=== PATIENT | male | born 1945 | race Caucasian/White ===

== ENCOUNTER 2018-08-22 00:20 | Outpatient (CLI) | payer MEDICARE ==
[2018-08-22 14:37] LABS: #Basophils 0.1 thou/uL (0.0-0.2); #Eosinphils 0.3 thou/uL (0.0-0.7); #Lymphocytes 2.3 thou/uL (1.20-3.40); #Monocytes 0.8 thou/uL (0.11-0.59); #Neutrophils 5.2 thou/uL (1.40-6.50); %Basophils 0.7 % (0.0-1.0); %Eosinophils 3.4 % (0.0-10.0); %Lymphocytes 26.6 % (21.0-51.0); %Monocytes 9.6 % (0.0-10.0); %Neutrophils 59.8 % (42.0-75.0); Hemoglobin 13.7 g/dL (14.0-18.0); Mean Corpuscular HGB CONC 32.2 g/dL (32.0-36.0); Mean Corpuscular Hemoglobin 29.7 pg (27.0-31.0); Mean Corpuscular Volume 92.3 fL (78.0-98.0); Mean Platelet Volume 8.4 fL (7.4-10.4); Platelet Count 262 thou/uL (130-400); RBC Distribution Width 11.8 % (11.5-14.5); Red Blood Cell (RBC) Count 4.61 mill/uL (4.70-6.10); White Blood Cell (WBC) Count 8.6 thou/uL (4.8-10.8)
[2018-08-22 14:39] LABS: Bilirubin Negative (Negative); Blood, Urine Small (Negative); Clarity CLEAR (Clear); Glucose, Urine (Dipstick) Negative (Negative); Leukocyte Negative (Negative); Nitrite Negative (Negative); Protein, Urine (Dipstick) Negative (Neg-Trace); Specific Gravity, Urine 1.014 (1.002-1.036); pH, Urine 7.5 (5.0-9.0)
[2018-08-22 14:41] LABS: Bacteria/HPF None Seen HPF (None Seen); Hyaline Casts/LPF 0-3 HYALINE CAST LPF (0-3 Hyaline); Squamous Epithelial None Seen HPF (0-3); WBC/HPF None Seen HPF (0-3)
[2018-08-22 14:47] LABS: Anion Gap 10 mmol/L (10-20); BUN (Urea Nitrogen) 17 mg/dL (8.4-25.7); Calc. Creatinine Clearance 0 mL/min (70-130); Carbon Dioxide 29 mmol/L (23-31); Chloride 106 mmol/L (98-107); Estimated GFR-MDRD 88; Glucose 100 mg/dL (83-110); Potassium 3.4 mmol/L (3.5-5.1); Sodium 142 mmol/L (136-145)
--- NOTE | 2018-08-23 16:45 | EKG ---
Test Reason : Blood Pressure : / mmHG Vent. Rate : 063 BPM Atrial Rate : 063 BPM P-R Int : 180 ms QRS Dur : 136 ms QT Int : 504 ms P-R-T Axes : 068 034 059 degrees QTc Int : 515 ms Normal sinus rhythm Right bundle branch block Abnormal ECG No previous ECGs available Confirmed by DR. Jasvir JACK ([id number]) on 08/23/2018 4:45:13 PM Referred By: IERO Confirmed By:DR. Jasvir JACK
== END 2018-08-22 00:21 | disposition home or self-care (01) ==
LOC: LABBT 00:20
PROVIDERS: ATTEND Orthopaedic Surgery
DX: Z01.818 Encounter for other preprocedural examination (principal); M17.12 Unilateral primary osteoarthritis, left knee
CPT/HCPCS: 80048; 81001; 85025; 87081; 93005; 93010

== ENCOUNTER 2018-09-02 05:30 | Inpatient (IN) | payer MEDICARE ==
[2018-08-22 13:05] VITALS: BMI 31.1
[2018-09-02] MEDS ORDERED: Sodium Chloride 0.9% 100 ML ONE (06:21)
[2018-09-02] MEDS ORDERED: Tranexamic Acid 1,000 MG/10 ML VIAL ONE ×2 (06:21→08:58)
[2018-09-02] MEDS ORDERED: Vancomycin HCl 1.5 GM in Sodium Chloride 0.9% 250 ML 300 ML IVPB SCH ×2 (06:30→20:00)
[2018-09-02 06:32] LABS: PTT 29.8 SEC (22.9-36.1); Prothrombin Time 13.4 SEC (12.0-14.7)
[2018-09-02] MEDS ORDERED: Midazolam HCl 2 mg/2 ml Vial ONE (06:33)
[2018-09-02] MEDS ORDERED: Lidocaine 1% (PF) 30 ML VIAL ONE (06:33)
[2018-09-02] MEDS ORDERED: Fentanyl 100 MCG/2 ML VIAL ONE ×2 (06:33→07:30)
[2018-09-02] MEDS ORDERED: traMADol HCl 50 MG TAB PO PRN ×3 (07:08→07:11)
[2018-09-02] MEDS ORDERED: Ropivacaine HCl/PF 250 ML in Premix Bag 1 BAG NERVE BLCK SCH (07:08)
[2018-09-02] MEDS ORDERED: HYDROcodone/Acetaminophen 10/325 mg Tablet PO PRN ×3 (07:08→07:11)
[2018-09-02] MEDS ORDERED: Ondansetron PF 4 MG/2 ML Vial IVP PRN ×2 (07:08→07:11)
[2018-09-02] MEDS ORDERED: Promethazine HCl 25 MG/ML VIAL IM PRN ×3 (07:08→09:07)
[2018-09-02] MEDS ORDERED: Zolpidem Tartrate 5 MG TAB PO PRN ×2 (07:08→07:11)
[2018-09-02] MEDS ORDERED: Fentanyl 100 MCG/2 ML VIAL SLOW IVP PRN ×2 (07:09→07:11)
[2018-09-02] MEDS ORDERED: Acetaminophen 325 MG TAB PO PRN (07:11)
[2018-09-02] MEDS ORDERED: diphenhydrAMINE 25 MG CAP PO PRN (07:11)
[2018-09-02] MEDS ORDERED: Tranexamic Acid 1,000 MG in Sodium Chloride 0.9% 100 ML IVPB SCH (07:15)
[2018-09-02] MEDS ORDERED: Bupivacaine PF 0.5% 30 ML VIAL ONE (07:42)
[2018-09-02] MEDS ORDERED: Ondansetron HCl/PF 4 MG/2 ML Vial IVP PRN (09:07)
[2018-09-02] MEDS ORDERED: Promethazine HCl 25 MG/ML VIAL SLOW IVP PRN (09:07)
[2018-09-02] MEDS: Sodium Chloride 0.9% 1,000 ML IV SCH ×3 (10:29→20:23)
--- NOTE | 2018-09-02 11:53 | OP ---
DATE OF PROCEDURE: 09/02/2018 PREOPERATIVE DIAGNOSIS: Left knee osteoarthrosis. POSTOPERATIVE DIAGNOSIS: Left knee osteoarthrosis. PROCEDURE PERFORMED: Left total knee replacement using Texline pinless navigation. MAT PACKER: Errol Gonzales PA-C ESTIMATED BLOOD LOSS: Minimal. COMPLICATIONS: None. ANESTHESIA: He had general anesthetic. He also had a preoperative block. IMPLANTS: Implants to the left leg was Evette triathlon total knee system. The femur was a size 6 cruciate retraining. The tibial base plate was size 6 primary tibial base plate. We used a 6 x 9 mm CS X3 tibial poly and an asymmetric 32 x 10 X3 patella. DISPOSITION: He did go to recovery in stable condition. INDICATIONS: This is a 73-year-old male, who has failed all nonoperative treatment for left knee arthritis. This is causing significant problems with daily activity, pain and a feeling of instability. At this time, he wished to have his knee replaced. PROCEDURE IN DETAIL: After all appropriate consent forms were explained and signed, the patient was taken back to the operating room and at this time was given general anesthetic. Once the level of anesthesia was appropriate, a well-padded tourniquet was placed on the left leg, and the leg was then prepped and draped in standard surgical fashion. The limb was exsanguinated and tourniquet taken up to 300 mmHg. Midline incision was made with a 10 blade down through the skin and subcutaneous tissue. Bovie electrocautery was used to coagulate any brisk venous bleeding. A new blade was used to make a medial parapatellar arthrotomy. Small subperiosteal release was performed medially and excess fat pad was removed. The knee was flexed up to gain access to the femur. The femur was navigated and distal femoral resection was made. Epicondylar access was used to align our sizing jig and this was pinned in place. We sized our femur to be a size 6 cruciate retraining. 4:1 cutting block was applied and pinned. Anterior and posterior chamfer cuts were then made. We navigated out our proximal tibia and made our proximal tibial resection. Spreaders were used to remove any posterior osteophytes off the back of the femur as well as remaining meniscal tissue. A long alignment miguel a was then used to achieve correct rotation of our tibial baseplate and a size size 6 primary tibial base plate was chosen. This was pinned in place. We trialed the polyethylene and a 6 x 9 mm CS X3 tibial polyethylene gave us full extension and good stability throughout range of motion. Two towel clips and a saw were used to cut our patella. Three lug nuts were drilled and asymmetric 32 x 10 X3 patella was trialed which sat nicely in the trochlear groove. We then drilled our femur and punched our tibia. All components were removed. The knee was thoroughly irrigated and dried. Cement was mixed into the cement gun on the back table. Components were then placed. The knee was held out in full extension until the cement had dried. All excess bone cement was removed. Multiple #2 Vicryl stitches as well as a Quill were used to close our extensor mechanism. 0 Quill followed by a running Monoderm was then used to close the skin. Surgicel glue was then used on the skin. Once this had dried, soft tissue dressing was applied to the limb, tourniquet was let down, and the toes pinked up nicely. The patient was then awakened and taken to the recovery room in stable condition. All counts were correct at the end of the case. The patient did receive preoperative IV antibiotics. The patient was injected with Exparel for postoperative pain relief. Job ID: [id number]
[2018-09-02] MEDS: Finasteride 5 MG TAB PO SCH (12:09)
[2018-09-02] MEDS: Tamsulosin HCl 0.4 MG CAP PO SCH (12:09)
[2018-09-02] MEDS: Aspirin 81 mg Enteric Coated Tablet PO SCH ×2 (12:10→20:24)
[2018-09-02] MEDS: Lisinopril 20 MG TAB PO SCH (12:10)
[2018-09-02] MEDS: Ketorolac Tromethamine 30 MG/ML VIAL IVP SCH ×3 (12:11→23:31)
[2018-09-02] MEDS ORDERED: Ropivacaine 0.5% HCl/PF (150 MG/30 ML VIAL) ONE (15:05)
[2018-09-02] MEDS ORDERED: Ropivacaine 0.2% HCl/PF (40 MG/20 ML VIAL) ONE (15:05)
[2018-09-02] MEDS ORDERED: Dexamethasone 20 MG/5 ML VIAL ONE (15:07)
[2018-09-02] MEDS ORDERED: PROPOFOL 200 MG/20 ML VIAL ONE (15:07)
[2018-09-02] MEDS ORDERED: Lidocaine 1% PF 5 ML VIAL ONE (15:07)
[2018-09-02] MEDS ORDERED: Ondansetron PF 4 MG/2 ML Vial ONE (15:07)
[2018-09-02] MEDS ORDERED: ePHEDrine 50 MG/ML VIAL ONE (15:07)
[2018-09-02] MEDS ORDERED: Glycopyrrolate 0.2 MG/ML 5 ML SYRINGE ONE (15:07)
[2018-09-02] MEDS ORDERED: Ketorolac Tromethamine 30 MG/ML VIAL ONE (15:07)
[2018-09-02] MEDS: Aliskiren Hemifumarate 300 mg Tablet PO SCH (15:38)
[2018-09-02] MEDS: Flecainide 50 MG TAB PO SCH ×2 (15:39→20:25)
[2018-09-02] MEDS: CEFAZOLIN 2 GM in Premix Bag 1 BAG IVPB SCH ×2 (15:40→23:32)
[2018-09-03] MEDS: Ketorolac Tromethamine 30 MG/ML VIAL IVP SCH ×4 (05:45→23:51)
[2018-09-03 06:10] LABS: Hemoglobin 10.8 g/dL (14.0-18.0); Mean Corpuscular Hemoglobin 30.4 pg (27.0-31.0); Mean Corpuscular Volume 92.4 fL (78.0-98.0); Mean Platelet Volume 8.9 fL (7.4-10.4); Platelet Count 196 thou/uL (130-400); RBC Distribution Width 11.7 % (11.5-14.5); Red Blood Cell (RBC) Count 3.55 mill/uL (4.70-6.10); White Blood Cell (WBC) Count 10.5 thou/uL (4.8-10.8)
[2018-09-03] MEDS: Ferrous Gluconate 324 MG TAB PO SCH ×2 (08:19→17:28)
[2018-09-03] MEDS: Aliskiren Hemifumarate 300 mg Tablet PO SCH (08:19)
[2018-09-03] MEDS: Flecainide 50 MG TAB PO SCH ×2 (08:20→20:47)
[2018-09-03] MEDS: Senokot S 8.6-50 MG TAB PO SCH ×2 (08:23→20:47)
[2018-09-03] MEDS: Aspirin 81 mg Enteric Coated Tablet PO SCH ×2 (08:23→20:47)
[2018-09-03] MEDS: Finasteride 5 MG TAB PO SCH (08:24)
[2018-09-03] MEDS: Lisinopril 20 MG TAB PO SCH (08:24)
[2018-09-03] MEDS: Tamsulosin HCl 0.4 MG CAP PO SCH (08:24)
[2018-09-03] MEDS: Multivitamin W/ Minerals 1 TAB PO SCH (08:24)
[2018-09-03] MEDS: Sodium Chloride 0.9% 1,000 ML IV SCH ×2 (13:33→23:50)
[2018-09-03] MEDS ORDERED: hydrALAZINE 20 MG/ML VIAL SLOW IVP PRN (14:47)
--- NOTE | 2018-09-03 15:06 | CON ---
DATE OF CONSULTATION: PRIMARY CARE PROVIDER: Dr. Brenden Mitchell, in [place], [place]. CHIEF COMPLAINT: Hypertension. HISTORY OF PRESENT ILLNESS: Mr. Noyola is a pleasant 73-year-old gentleman, who was seen at [facility] for management of medical comorbidities on September 03, 2018. Yesterday, he underwent left total knee replacement. Hospitalist Service was consulted for medical management. He denies any chest pain or shortness of breath. He denies any nausea or vomiting. He denies any abdominal pain. He denies any diarrhea. REVIEW OF SYSTEMS: All other systems reviewed and found to be negative. PAST MEDICAL HISTORY: Atrial fibrillation, benign prostate hypertrophy, and hypertension. PAST SURGICAL HISTORY: Hernia surgery. SOCIAL HISTORY: One or two beers a day. No tobacco use or recreational drug use. FAMILY HISTORY: Father from myocardial infarction. Mother had stroke. ALLERGIES: NO KNOWN DRUG ALLERGIES. CURRENT MEDICATIONS: 1. Aliskiren 150 mg daily. 2. Apixaban 5 mg two times a day. 3. Finasteride 5 mg daily. 4. Flecainide 50 mg 2 times a day. 5. Lisinopril 40 mg daily. 6. Toprol-XL 50 mg daily. 7. Tamsulosin 0.4 mg daily. PHYSICAL EXAMINATION: GENERAL: On examination, Mr. Noyola is awake and alert, not in acute distress. VITAL SIGNS: Blood pressure is 134/71, pulse 88, respiratory rate 18, and oxygen saturation 92% on room air. He is afebrile. He is obese, with a BMI of 31.2. EYES: No scleral icterus, no conjunctival pallor. ENT: Moist mucosal membranes. No oropharyngeal erythema or exudates. NECK: Supple, nontender, trachea is midline. RESPIRATORY: Accessory muscles of breathing are not active. Chest wall movements are symmetric bilaterally. LUNGS: Clear to auscultation without wheeze, rhonchi, or crepitations. CARDIOVASCULAR: S1 and S2 are heard, regular. Peripheral pulses palpable. No carotid bruit. No pericardial rub. ABDOMEN: Soft, nontender, bowel sounds heard. NEUROLOGIC: Cranial nerves II through XII are intact. MUSCULOSKELETAL: Status post left knee surgery. SKIN: No rashes or subcutaneous nodules. LYMPHATIC: No cervical lymphadenopathy. PSYCHIATRIC: Normal mood, normal affect, the patient is oriented to person, place, and time. LABORATORY DATA: Mr. Noyola's labs and investigations were reviewed. He has normal white count, normocytic anemia with hemoglobin of 10.8, and normal platelet count. INR is 1.0. ASSESSMENT AND PLAN: Mr. Noyola is a pleasant 73-year-old gentleman, who was seen at [facility] on September 03, 2018. His problem list includes: 1. Hypertension: Blood pressure is currently controlled, continue metoprolol and lisinopril. Add p.r.n. hydralazine for blood pressure spikes. 2. Atrial fibrillation: Continue beta cody. Resumption of anticoagulation per Orthopedic Surgery Service. 3. Benign prostate hypertrophy: Stable, continue tamsulosin and finasteride. Many thanks for allowing me to participate in your patient's care. Please feel free to contact me with any questions or concerns. LEVEL OF RISK: Moderate. LEVEL OF COMPLEXITY: Moderate. Job ID: [id number]
[2018-09-03] MEDS: HYDROcodone/Acetaminophen 10/325 mg Tablet PO PRN (20:50)
[2018-09-03] MEDS: cloNIDine 0.1 MG TAB PO PRN (22:21)
[2018-09-04] MEDS: HYDROcodone/Acetaminophen 10/325 mg Tablet PO PRN ×3 (04:15→13:12)
[2018-09-04] MEDS: cloNIDine 0.1 MG TAB PO PRN (04:15)
[2018-09-04 04:55] LABS: Hemoglobin 10.2 g/dL (14.0-18.0); Mean Corpuscular HGB CONC 32.7 g/dL (32.0-36.0); Mean Corpuscular Hemoglobin 30.6 pg (27.0-31.0); Mean Corpuscular Volume 93.3 fL (78.0-98.0); Mean Platelet Volume 9.1 fL (7.4-10.4); Platelet Count 178 thou/uL (130-400); RBC Distribution Width 11.7 % (11.5-14.5); Red Blood Cell (RBC) Count 3.34 mill/uL (4.70-6.10); White Blood Cell (WBC) Count 10.6 thou/uL (4.8-10.8)
[2018-09-04] MEDS: Ketorolac Tromethamine 30 MG/ML VIAL IVP SCH (05:08)
[2018-09-04] MEDS ORDERED: Labetalol HCl 100 MG/20 ML VIAL SLOW IVP PRN (08:58)
[2018-09-04] MEDS ORDERED: CeleCOXIB 100 MG CAP PO SCH (09:00)
[2018-09-04] MEDS: Senokot S 8.6-50 MG TAB PO SCH (09:18)
[2018-09-04] MEDS: Tamsulosin HCl 0.4 MG CAP PO SCH (09:18)
[2018-09-04] MEDS: Multivitamin W/ Minerals 1 TAB PO SCH (09:18)
[2018-09-04] MEDS: Aspirin 81 mg Enteric Coated Tablet PO SCH (09:18)
[2018-09-04] MEDS: Ferrous Gluconate 324 MG TAB PO SCH (09:19)
[2018-09-04] MEDS: Lisinopril 20 MG TAB PO SCH (09:19)
[2018-09-04] MEDS: Finasteride 5 MG TAB PO SCH (09:19)
[2018-09-04] MEDS: Sodium Chloride 0.9% 1,000 ML IV SCH (09:31)
[2018-09-04] MEDS: Aliskiren Hemifumarate 300 mg Tablet PO SCH (10:14)
[2018-09-04] MEDS: Flecainide 50 MG TAB PO SCH (10:14)
[2018-09-04 14:02] VITALS: BP 135/68; TEMP 98.4
--- NOTE | 2018-09-04 23:34 | PDOC.PN ---
- Subjective Encounter Start Date: 09/04/18 Encounter Start Time: 09:30 Patient seen and examined for med mngt. No new complaints. No overnight events - Objective MAR Reviewed: Yes Vital Signs & Weight: Vital Signs (12 hours) Temp Pulse Resp BP Pulse Ox 09/04/18 14:02 98.4 F 80 18 135/68 94 L 09/04/18 11:42 98.3 F 82 18 125/69 94 L Weight Admit Weight 230 lb Weight 230 lb 0.071 oz I&O: 09/03/18 09/04/18 09/05/18 06:59 06:59 06:59 Intake Total 3446.0 1101.0 Output Total 400 Balance 3446.0 701.0 Result Diagrams: 09/04/18 04:13 Phys Exam - Physical Examination Constitutional: NAD Respiratory: no wheezing, no rhonchi Cardiovascular: RRR, no rub Gastrointestinal: soft, non-tender, positive bowel sounds Musculoskeletal: no edema Dx/Plan - Plan DVT proph w/SCDs 1. HTN 2. Par Afib 3. YESSENIA on CPAP 4. Obesity BMI 31.2 PLAN: Resume Eliquis per Ortho Cont current meds as below Review of Systems - Review of Systems Respiratory: negative: Cough, Dry, Shortness of Breath, Hemoptysis, SOB with Excertion, Pleuritic Pain, Sputum, Wheezing Cardiovascular: negative: chest pain, palpitations, orthopnea, paroxysmal nocturnal dyspnea, edema, light headedness, other - Medications/Allergies Allergies/Adverse Reactions: Allergies Allergy/AdvReac Type Severity Reaction Status Date / Time No Known Allergies Allergy Unverified 08/22/18 13:05
== END 2018-09-04 13:55 | disposition home or self-care (01) | DRG 470 ==
LOC: EDBD → SDC 05:30 → SJJU 10:17
PROVIDERS: ADMIT Orthopaedic Surgery; ATTEND Orthopaedic Surgery
PROC: 0SRD0J9 Replacement of Left Knee Joint with Synthetic Substitute, Cemented, Open Approach (ICD-10-PCS; principal; 2018-09-02)
DX: M17.12 Unilateral primary osteoarthritis, left knee (principal); I10 Essential (primary) hypertension; I48.91 Unspecified atrial fibrillation; N40.0 Benign prostatic hyperplasia without lower urinary tract symptoms; E66.9 Obesity, unspecified; Z68.31 Body mass index [BMI] 31.0-31.9, adult; Z79.899 Other long term (current) drug therapy; Z79.01 Long term (current) use of anticoagulants
CPT/HCPCS: 36415; 85027; 85610; 85730; 86850; 86900; 86901; C1713; C1776; J0360; J1100; J1885; J2001; J2250; J2405; J2704; J2795; J3010; J3370; J3490; J7050; S0020

== ENCOUNTER 2018-09-05 14:26 | Emergency (ER) | payer MEDICARE ==
[2018-09-05] MEDS ORDERED: ISOVUE-370 76%-LOCM 1 ML ONE (14:58)
[2018-09-05 15:14] LABS: #Eosinphils 0.3 thou/uL (0.0-0.7); #Lymphocytes 0.9 thou/uL (1.20-3.40); #Monocytes 1.1 thou/uL (0.11-0.59); #Neutrophils 6.5 thou/uL (1.40-6.50); %Basophils 0.3 % (0.0-1.0); %Eosinophils 2.9 % (0.0-10.0); %Monocytes 12.7 % (0.0-10.0); Hemoglobin 9.3 g/dL (14.0-18.0); Mean Corpuscular HGB CONC 32.4 g/dL (32.0-36.0); Mean Corpuscular Hemoglobin 30.2 pg (27.0-31.0); Mean Corpuscular Volume 93.2 fL (78.0-98.0); Mean Platelet Volume 9.1 fL (7.4-10.4); Platelet Count 189 thou/uL (130-400); RBC Distribution Width 11.9 % (11.5-14.5); Red Blood Cell (RBC) Count 3.09 mill/uL (4.70-6.10); White Blood Cell (WBC) Count 8.7 thou/uL (4.8-10.8)
--- NOTE | 2018-09-05 15:25 | CT ---
FEXAM:CT anterior chest performed with intravenous contrast enhancement with 3-D reconstructions HISTORY: Shortness of breath. Knee replacement on Sunday for which he was discharged on Sunday. COMPARISON: None. FINDINGS:The lungs show some evidence for air trapping. Tiny bilateral pleural effusions are noted. A well-circumscribed left lower lobe pulmonary nodule is identified and measures 7 to 8 mm. There are atelectatic changes in both lung bases. There is some mildly numerous mediastinal nodes with multiple right paratracheal and prevascular node s. Most of these are subcentimeter in size slightly enlarged prevascular nodes measuring in the 10 mm range. These may all be reactive. There are also small bilateral hilar lymph nodes present The thora cic aorta is normal in caliber. There is good pulmonary artery opacification obtained there is no CT evidence for pulmonary embolus. Visualized liver parenchyma shows no focal findings. Partially visualized hypodensity involving the r ight kidney appears to represent a cyst. IMPRESSION: 1. Moderate bibasilar atelectasis with tiny bilateral effusions. 2. 7 to 8 mm noncalcified left lower lobe pulmonary nodule. A follow-up in approximately one year wou ld be recommended for assessment. 3. Mildly prominent mediastinal adenopathy possibly reactive. 4. Evidence of some air trapping. 5. No CT evidence for pulmonary embolus.
[2018-09-05 15:29] LABS: ALT (SGPT) 33 U/L (8-55); AST (SGOT) 26 U/L (5-34); Albumin 3.4 g/dL (3.4-4.8); Alkaline Phosphatase 58 U/L (40-150); Anion Gap 11 mmol/L (10-20); BUN (Urea Nitrogen) 22 mg/dL (8.4-25.7); Bilirubin, Total 0.6 mg/dL (0.2-1.2); CK (CPK) 130 U/L (30-200); Calc. Creatinine Clearance 0 mL/min (70-130); Calcium 8.2 mg/dL (7.8-10.44); Carbon Dioxide 29 mmol/L (23-31); Chloride 104 mmol/L (98-107); Estimated GFR-MDRD Greater than 90; Globulin 2.1 g/dL (2.4-3.5); Glucose 107 mg/dL (83-110); Potassium 3.8 mmol/L (3.5-5.1); Protein, Total 5.5 g/dL (5.8-8.1); Sodium 140 mmol/L (136-145)
== END 2018-09-05 16:56 | disposition home or self-care (01) ==
LOC: ERS 14:26
DX: R06.02 Shortness of breath (principal); I48.91 Unspecified atrial fibrillation; I11.0 Hypertensive heart disease with heart failure; I50.9 Heart failure, unspecified
CPT/HCPCS: 36415; 71275; 80053; 82550; 84484; 85025; 93005; 94760; Q9966

== ENCOUNTER 2018-11-13 12:02 | Outpatient (CLI) | payer MEDICARE ==
--- NOTE | 2018-11-13 12:34 | RAD ---
EXAM: CHEST TWO VIEWS: 11/13/18 HISTORY: Dyspnea. Heart size is upper range of normal. Bronchovascular markings are slightly increased bilaterally. Mor e so in the bases with some linear change. No confluent pneumonia, overt edema, or pleural effusion. IMPRESSION: Borderline sized heart. Bilateral linear and interstitial increased markings having more of a chroni c appearance. 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 POS: [facility]
== END 2018-11-13 12:03 | disposition home or self-care (01) ==
LOC: RAD 12:02
PROVIDERS: ATTEND Internal Medicine Pulmonary Disease
DX: R06.00 Dyspnea, unspecified (principal)
CPT/HCPCS: 71046